=== PATIENT | female | born 1965 | race American Indian/Alaskan Native ===

== ENCOUNTER 2019-01-17 08:38 | Outpatient (CLI) | payer MEDICAID | END 2019-01-17 08:39 | disposition home or self-care (01) | LOC: C.USIC 08:39 ==

== ENCOUNTER 2019-01-24 15:49 | Outpatient (CLI) | payer MEDICAID | END 2019-01-24 15:50 | disposition home or self-care (01) | LOC: C.MAMMO 15:50 | DX: Z12.31 Encounter for screening mammogram for malignant neoplasm of breast (principal) ==